=== PATIENT | female | born 1975 | race Caucasian/White ===

== ENCOUNTER 2018-04-22 03:33 | Observation (INO) | payer SELFPAY ==
[2018-04-22] MEDS ORDERED: PROMETHAZINE HCL INJ 25 MG/1 ML VIAL IM ONE (03:48)
[2018-04-22] MEDS ORDERED: NORMAL SALINE 1000 ML 1,000 ML IV ONE (03:48)
--- NOTE | 2018-04-22 03:52 | ER Document Report ---
ED General - General Stated Complaint: ABOMINAL PAIN Time Seen by Provider: 04/22/18 03:45 Notes: Patient is a 42-year-old female presents with complaints of nausea vomiting and diarrhea. She also has some mild abdominal soreness over the upper abdomen she said occurred after the vomiting started. She does not have significant pain in the abdomen per her. No fevers. She was given Zofran and able to close those in the home. She does have diabetes and recently just finished a course of steroids for bronchitis and therefore her blood sugar is running high. In the ambulance her Accu-Chek was 402. Symptoms just started 11 PM. She says only previous abdominal surgeries hysterectomy. No dysuria. No urinary frequency. No implants at this time. No chest pain. TRAVEL OUTSIDE OF THE [place] IN LAST 30 DAYS: No - Related Data Allergies/Adverse Reactions: No Known Allergies Allergy (Unverified 04/19/15 10:52) Past Medical History - Social History Smoking Status: Unknown if Ever Smoked Frequency of alcohol use: None Drug Abuse: None Family History: Reviewed & Not Pertinent - Past Medical History Cardiac Medical History: Reports: Hx Hypercholesterolemia, Hx Hypertension - on meds Denies: Hx Coronary Artery Disease, Hx Heart Attack Pulmonary Medical History: Denies: Hx Asthma, Hx Bronchitis, Hx COPD, Hx Pneumonia Neurological Medical History: Denies: Hx Cerebrovascular Accident, Hx Seizures Endocrine Medical History: Reports: Hx Diabetes Mellitus Type 1, Hx Diabetes Mellitus Type 2 Musculoskeltal Medical History: Denies Hx Arthritis Past Surgical History: Reports: Hx Hysterectomy - Immunizations Hx Diphtheria, Pertussis, Tetanus Vaccination: Yes Review of Systems - Review of Systems Notes: My Normal Review Basic REVIEW OF SYSTEMS: CONSTITUTIONAL : Denies fever, chills, or sweats. Denies recent illness. EENT: Denies eye, ear, throat, or mouth pain or symptoms. Denies nasal or sinus congestion. CARDIOVASCULAR: Denies chest pain. RESPIRATORY: Denies cough, cold, or chest congestion. Denies shortness of breath, difficulty breathing, or wheezing. GASTROINTESTINAL: Upper abdominal pain. Some vomiting diarrhea. GENITOURINARY: Denies difficulty urinating, painful urination, burning, frequency, or blood in urine. FEMALE GENITOURINARY: Denies vaginal bleeding, abnormal or irregular periods. LMP: MUSCULOSKELETAL: Denies neck or back pain or joint pain or swelling. SKIN: Denies rash or skin lesions. NEUROLOGICAL: Denies altered mental status or loss of consciousness. Denies headache. Denies weakness or paralysis or loss of use of either side. Denies problems with gait or speech. Denies sensory or motor loss. ALL OTHER SYSTEMS REVIEWED AND NEGATIVE. Physical Exam - Vital signs Vitals: Temp Pulse Resp BP Pulse Ox 98.2 F 118 H 16 98/56 L 100 04/22/18 03:43 04/22/18 03:43 04/22/18 03:43 04/22/18 03:43 04/22/18 03:43 - Notes Notes: General Appearance: Well nourished, alert, cooperative, no acute distress, mild obvious discomfort. Vitals: reviewed, See vital signs table. Head: no swelling or tenderness to the head Eyes: PERRL, EOMI, Conjuctiva clear Mouth: No decreasd moisture Throat: No tonsillar inflammation, No airway obstruction, No lymphadenopathy Neck: Supple, no neck tenderness Lungs: No wheezing, No rales, No rhonci, No accessory muscle use, good air exchange bilaterally. Heart: Normal rate, Regular rythm, No murmur, no rub Abdomen: Normal BS, soft, No rigidity, mild upper abdominal tenderness to palpation. No lower abdominal tenderness to palpation, No guarding, no rebound , no abdominal masses, no organomegaly Extremities: strength 5/5 in all extremities, good pulses in all extremities, no swelling or tenderness in the extremities, no edema. Skin: warm, dry, appropriate color, no rash Neuro: speech clear, oriented x 3, normal affect, responds appropriately to questions.. Course - Re-evaluation Re-evalutation: 04/22/18 06:58 Patient has hyperglycemia and intractable vomiting. Despite multiple different nausea medications cannot get her nausea under control. She continues to vomit. She also has recurrent diarrhea. I have ordered a C. difficile stool culture being that the patient was receiving antibiotic. We have not been able to get an adequate stool sample as of yet. Due to intractable vomiting felt appropriate to admit her to the hospital. I did speak with the hospitalist, Dr. Rojas, who agrees to evaluate the patient for admission. Dictation of this chart was performed using voice recognition software; therefore, there may be some unintended grammatical errors. - Vital Signs Vital signs: Temp Pulse Resp BP Pulse Ox 98.2 F 118 H 16 98/56 L 100 04/22/18 03:43 04/22/18 03:43 04/22/18 03:43 04/22/18 03:43 04/22/18 03:43 - Laboratory Result Diagrams: 04/22/18 03:50 04/22/18 03:50 Laboratory results interpreted by me: 04/22/18 04/22/18 04/22/18 03:50 03:50 03:50 WBC 12.7 H Seg Neuts % (Manual) 82 H Band Neutrophils % 6 H Lymphocytes % (Manual) 5 L Abs Neuts (Manual) 11.2 H BUN 24 H Glucose 429 H* Hemoglobin A1c % 11.9 H Magnesium 1.4 L Direct Bilirubin 0.5 H Urine Glucose (UA) Urine Ketones 04/22/18 04:15 WBC Seg Neuts % (Manual) Band Neutrophils % Lymphocytes % (Manual) Abs Neuts (Manual) BUN Glucose Hemoglobin A1c % Magnesium Direct Bilirubin Urine Glucose (UA) >=500 H Urine Ketones TRACE H - EKG Interpretation by Me Additional EKG results interpreted by me: 04/22/18 03:59 EKG is reviewed and interpreted by me. EKG shows sinus tachycardia with rate of [address] segment elevation or depression. AL interval, QRS duration, QTc intervals are within normal range. Old EKG for comparison is from April 19, 2015. Discharge - Discharge
[2018-04-22 04:01] LABS: HEMATOCRIT 46.2 % (36.0-47.0); HEMOGLOBIN 15.5 g/dL (12.0-15.5); MEAN CORPUSCULAR HGB CONC 33.6 g/dL (32.0-36.0); MEAN CORPUSCULAR VOLUME 92 fl (80-97); PLATELET COUNT 350 10^3/uL (150-450); RED BLOOD COUNT 5.01 10^6/uL (3.72-5.28); WHITE BLOOD COUNT 12.7 10^3/uL (4.0-10.5)
[2018-04-22 04:13] LABS: ALANINE AMINOTRANSFERASE 31 U/L (9-52); ALBUMIN 4.3 g/dL (3.5-5.0); ALKALINE PHOSPHATASE 87 U/L (38-126); ANION GAP 16 (5-19); ASPARTATE AMINO TRANSFERASE 15 U/L (14-36); BILIRUBIN,DIRECT 0.5 mg/dL (0.0-0.4); BILIRUBIN,TOTAL 0.7 mg/dL (0.2-1.3); BLOOD UREA NITROGEN 24 mg/dL (7-20); CALCIUM 9.7 mg/dL (8.4-10.2); CARBON DIOXIDE 26 mmol/L (22-30); CHLORIDE 100 mmol/L (98-107); LIPASE 148.3 U/L (23-300); POTASSIUM 4.3 mmol/L (3.6-5.0); SODIUM 142.2 mmol/L (137-145); TOTAL PROTEIN 7.3 g/dL (6.3-8.2)
[2018-04-22 04:22] LABS: ABSOLUTE LYMPHOCYTES# (MANUAL) 0.6 10^3/uL (0.5-4.7); ABSOLUTE MONOCYTES # (MANUAL) 0.6 10^3/uL (0.1-1.4); ABSOLUTE NEUTROPHILS# (MANUAL) 11.2 10^3/uL (1.7-8.2); BAND NEUTROPHILS % (MANUAL) 6 % (3-5); BASOPHILS % (MANUAL) 0 % (0-2); EOSINOPHILS % (MANUAL) 2 % (0-6); LYMPHOCYTES % (MANUAL) 5 % (13-45); MONOCYTES % (MANUAL) 5 % (3-13); SEGMENTED NEUTROPHILS % (MAN) 82 % (42-78); TOTAL CELLS COUNTED 100
[2018-04-22 04:23] LABS: GLUCOSE 429 mg/dL (75-110)
[2018-04-22 04:24] LABS: OVALOCYTES SLIGHT; PLATELET COMMENT ADEQUATE; PLATELET LARGE PRESENT; TOXIC GRANULATION SLIGHT; TOXIC VACUOLATION PRESENT
[2018-04-22 04:49] LABS: APPEARANCE,URINE CLEAR; BILIRUBIN,URINE NEGATIVE (NEGATIVE); COLOR,URINE YELLOW; GLUCOSE, URINE >=500 mg/dL (NEGATIVE); KETONES,URINE TRACE mg/dL (NEGATIVE); LEUKOCYTE ESTERASE,URINE NEGATIVE (NEGATIVE); NITRITE,URINE NEGATIVE (NEGATIVE); PROTEIN,URINE NEGATIVE (NEGATIVE); URINE SPECIFIC GRAVITY 1.037; UROBILINOGEN,URINE NEGATIVE mg/dL (<2.0)
[2018-04-22] MEDS: MAGNESIUM SULFATE/D5W 1 GM/100 ML RTUPB IV SCH ×2 (04:50→05:15)
[2018-04-22] MEDS ORDERED: METOCLOPRAMIDE HCL INJ/PF 10 MG/2 ML SDV IV ONE (05:11)
[2018-04-22] MEDS ORDERED: PROMETHAZINE HCL INJ 25 MG/1 ML VIAL IV PRN (05:28)
[2018-04-22] MEDS ORDERED: ACETAMINOPHEN 325 MG TABLET PO PRN (05:28)
[2018-04-22] MEDS ORDERED: DEXTROSE 40% GEL 15 GM TUBE PO PRN ×2 (05:35)
[2018-04-22] MEDS ORDERED: GLUCAGON,HUMAN RECOMB 1 MG INJ IM PRN (05:35)
[2018-04-22] MEDS ORDERED: DEXTROSE 50%-WATER 25 GM/50 ML DISP.SYRIN IV PRN ×2 (05:35)
--- NOTE | 2018-04-22 05:47 | PDOC H&P ---
History of Present Illness Admission Date/PCP: MARBELLA JACOBS MD History of Present Illness: JOSE ANTONIO JEFF is a 42 year old female patient with past medical history of hypertension, hyperlipidemia, diabetes mellitus and anxiety disorder presents with chief complaint of nausea, vomiting and diarrhea. Patient reports this that she has been in her usual baseline state of health up until 11 PM yesterday when she started to have sudden onset vomiting of ingested material, watery diarrhea and abdominal pain. She claims both the diarrhea and the vomiting are too frequent to count. En route to hospital she was given Zofran to no avail. Here at ER shows given Phenergan and Reglan but continued to have vomiting. Her blood work shows hyperglycemia of 400. Of note patient completed a course of steroid and doxycycline for bronchitis week ago. Patient denies fever, chills, chest pain, cough, dyspnea, palpitation, diaphoresis or dysuria. No headache dizziness or blurry vision. Past Medical History Cardiac Medical History: Reports: Hyperlipidema, Hypertension - on meds Denies: Coronary Artery Disease, Myocardial Infarction Pulmonary Medical History: Denies: Asthma, Bronchitis, Chronic Obstructive Pulmonary Disease (COPD), Pneumonia Neurological Medical History: Denies: Seizures Endocrine Medical History: Reports: Diabetes Mellitus Type 1, Diabetes Mellitus Type 2 Musculoskeltal Medical History: Denies: Arthritis Hematology: Denies: Anemia Past Surgical History Past Surgical History: Reports: Hysterectomy Social History Smoking Status: Never Smoker Frequency of Alcohol Use: None Hx Recreational Drug Use: No Drugs: None - Advance Directive Resuscitation Status: Full Code Family History Family History: Reviewed & Not Pertinent, DM, Hypertension Parental Family History Reviewed: Yes Children Family History Reviewed: Yes Sibling(s) Family History Reviewed.: Yes Medication/Allergy Home Medications: Escitalopram Oxalate [Lexapro] 10 mg PO DAILY 04/19/15 Lisinopril 20 mg PO BID 04/19/15 Metformin HCl [Glucophage] 500 mg PO BID 04/19/15 Omeprazole [Prilosec] 40 mg PO DAILY 04/19/15 Pravastatin Sodium [Pravachol] 20 mg PO DAILY 04/19/15 Hydrocodone/Acetaminophen [Vicodin 5-300 mg Tablet] 1 tab PO Q6HP PRN 04/21/15 Prednisone [Deltasone 20 mg Tablet] 3 tab PO DAILY 7 Days tablet 01/04/16 Moxifloxacin HCl [Vigamox 0.5% Oph Soln 3 Ml] 1 drop .ROUTE TID #1 bottle Oxycodone HCl/Acetaminophen [Percocet 5-325 mg Tablet] 1 - 2 tab PO ASDIR PRN # 25 tablet 08/24/16 Allergies/Adverse Reactions: No Known Allergies Allergy (Unverified 04/19/15 10:52) Review of Systems Constitutional: PRESENT: as per HPI Eyes: PRESENT: as per HPI Breasts: PRESENT: as per HPI Cardiovascular: PRESENT: as per HPI Respiratory: PRESENT: as per HPI Gastrointestinal: PRESENT: as per HPI Neurological: PRESENT: as per HPI Psychiatric: PRESENT: as per HPI Physical Exam Vital Signs: Temp Pulse Resp BP Pulse Ox 98.2 F 118 H 16 98/56 L 100 04/22/18 03:43 04/22/18 03:43 04/22/18 03:43 04/22/18 03:43 04/22/18 03:43 Intake & Output 04/20/18 04/21/18 04/22/18 06:59 06:59 06:59 Weight 102.058 kg General appearance: PRESENT: mild distress Head exam: PRESENT: atraumatic, normocephalic Eye exam: PRESENT: conjunctiva pink, EOMI, PERRLA. ABSENT: scleral icterus Neck exam: ABSENT: carotid bruit, JVD, lymphadenopathy, thyromegaly Respiratory exam: PRESENT: clear to auscultation [place]. ABSENT: rales, rhonchi, wheezes Cardiovascular exam: PRESENT: RRR. ABSENT: diastolic murmur, rubs, systolic murmur Pulses: PRESENT: normal dorsalis pedis pul GI/Abdominal exam: PRESENT: normal bowel sounds, soft. ABSENT: distended, guarding, mass, organolmegaly, rebound, tenderness Extremities exam: PRESENT: full ROM. ABSENT: calf tenderness, clubbing, pedal edema Neurological exam: PRESENT: alert, awake, oriented to time, oriented to situation Psychiatric exam: PRESENT: normal mood Results Laboratory Results: 04/22/18 03:50 04/22/18 03:50 04/22/18 04/22/18 04/22/18 03:50 03:50 04:15 WBC 12.7 H RBC 5.01 Hgb 15.5 Hct 46.2 MCV 92 MCH 31.0 MCHC 33.6 RDW 13.0 Plt Count 350 Seg Neutrophils % Not Reportable Lymphocytes % Not Reportable Monocytes % Not Reportable Eosinophils % Not Reportable Basophils % Not Reportable Absolute Neutrophils Not Reportable Absolute Lymphocytes Not Reportable Absolute Monocytes Not Reportable Absolute Eosinophils Not Reportable Absolute Basophils Not Reportable Sodium 142.2 Potassium 4.3 Chloride 100 Carbon Dioxide 26 Anion Gap 16 BUN 24 H Creatinine 0.76 Est GFR ( Amer) > 60 Est GFR (Non-Af Amer) > 60 Glucose 429 H* Calcium 9.7 Magnesium 1.4 L Total Bilirubin 0.7 AST 15 ALT 31 Alkaline Phosphatase 87 Total Protein 7.3 Albumin 4.3 Lipase 148.3 Urine Color YELLOW Urine Appearance CLEAR Urine pH 5.0 Ur Specific [place] 1.037 Urine Protein NEGATIVE Urine Glucose (UA) >=500 H Urine Ketones TRACE H Urine Blood NEGATIVE Urine Nitrite NEGATIVE Ur Leukocyte Esterase NEGATIVE Urine WBC (Auto) 2 Urine RBC (Auto) 4 Assessment & Plan - Diagnosis (1) Intractable nausea and vomiting Qualifiers: Vomiting type: unspecified Qualified Code(s): R11.2 - Nausea with vomiting , unspecified Is this a current diagnosis for this admission?: Yes Plan: Cautious hydration and antiemetic (2) Diarrhea Qualifiers: Diarrhea type: unspecified type Qualified Code(s): R19.7 - Diarrhea, unspecified Is this a current diagnosis for this admission?: Yes Plan: Cautious hydration with Ringer lactate, stool for C. difficile colitis (3) Hypertension Qualifiers: Hypertension type: essential hypertension Qualified Code(s): I10 - Essential (primary) hypertension Is this a current diagnosis for this admission?: Yes Plan: Continue home medications (4) Hyperlipidemia Qualifiers: Hyperlipidemia type: unspecified Qualified Code(s): E78.5 - Hyperlipidemia , unspecified Is this a current diagnosis for this admission?: Yes Plan: Continue home medications (5) Type 2 diabetes mellitus Is this a current diagnosis for this admission?: Yes Plan: Hold metformin and start her on sliding scale.
--- NOTE | 2018-04-22 07:16 | EKG REPORT ---
SEVERITY:- ABNORMAL ECG - SINUS TACHYCARDIA NONSPECIFIC T ABNORMALITIES, DIFFUSE LEADS : Confirmed by: Esequiel Gaston MD 22-Apr-2018 07:15:17
[2018-04-22] MEDS: ENOXAPARIN SODIUM INJ 40 MG/0.4 ML DISP.SYRIN SUBCUT SCH (10:21)
[2018-04-22] MEDS: RINGERS SOLUTION,LACTATED 1,000 ML IV PRN ×2 (11:00→14:30)
[2018-04-22] MEDS: INSULIN LISPRO 100 UNIT/ML 3 ML VIAL SUBCUT PRN ×3 (11:27→22:04)
[2018-04-22] MEDS: METOCLOPRAMIDE HCL INJ/PF 10 MG/2 ML SDV IV SCH ×2 (12:05→17:16)
[2018-04-22] MEDS ORDERED: (PENDING PHARMACY ID) (Metformin Hcl [Metformin Hcl Er] 1,000 MG) PO SCH (13:15)
[2018-04-22] MEDS: METFORMIN HCL 500 MG TABLET PO SCH (16:43)
[2018-04-22] MEDS ORDERED: ESCITALOPRAM OXALATE 10 MG TABLET PO SCH (18:00)
[2018-04-22] MEDS ORDERED: ATORVASTATIN CALCIUM 10 MG TABLET PO SCH (22:00)
[2018-04-23] MEDS: RINGERS SOLUTION,LACTATED 1,000 ML IV PRN (00:39)
[2018-04-23] MEDS: METOCLOPRAMIDE HCL INJ/PF 10 MG/2 ML SDV IV SCH ×3 (00:39→12:10)
[2018-04-23 06:31] LABS: HEMATOCRIT 40.4 % (36.0-47.0); HEMOGLOBIN 13.8 g/dL (12.0-15.5); MEAN CORPUSCULAR HEMOGLOBIN 31.2 pg (27.0-33.4); MEAN CORPUSCULAR HGB CONC 34.2 g/dL (32.0-36.0); MEAN CORPUSCULAR VOLUME 91 fl (80-97); PLATELET COUNT 221 10^3/uL (150-450); RED BLOOD COUNT 4.43 10^6/uL (3.72-5.28); RED CELL DISTRIBUTION WIDTH 13.1 % (11.5-14.0); WHITE BLOOD COUNT 5.5 10^3/uL (4.0-10.5)
[2018-04-23 06:47] LABS: ANION GAP 11 (5-19); BLOOD UREA NITROGEN 12 mg/dL (7-20); CALCIUM 8.6 mg/dL (8.4-10.2); CARBON DIOXIDE 23 mmol/L (22-30); CHLORIDE 104 mmol/L (98-107); GLUCOSE 220 mg/dL (75-110); POTASSIUM 3.9 mmol/L (3.6-5.0); SODIUM 138.1 mmol/L (137-145)
[2018-04-23] MEDS: METFORMIN HCL 500 MG TABLET PO SCH (08:42)
[2018-04-23] MEDS: INSULIN LISPRO 100 UNIT/ML 3 ML VIAL SUBCUT PRN ×2 (08:45→12:10)
[2018-04-23] MEDS ORDERED: LISINOPRIL 10 MG TABLET PO SCH (10:00)
[2018-04-23] MEDS ORDERED: (PENDING PHARMACY ID) (Lisinopril [Lisinopril] 20 MG) PO SCH (10:00)
[2018-04-23] MEDS: ENOXAPARIN SODIUM INJ 40 MG/0.4 ML DISP.SYRIN SUBCUT SCH (10:39)
--- NOTE | 2018-04-23 12:45 | PDOC DISCHARGE SUMMARY ---
General - Admit/Disc Date/PCP Admission Date/Primary Care Provider: 04/22/18 05:51 MARBELLA JACOBS MD Discharge Date: 04/23/18 - Discharge Diagnosis (1) Gastroenteritis Is this a current diagnosis for this admission?: Yes (2) Hypertension Is this a current diagnosis for this admission?: Yes (3) Intractable nausea and vomiting Is this a current diagnosis for this admission?: Yes (4) Type 2 diabetes mellitus Is this a current diagnosis for this admission?: Yes - Additional Information Resuscitation Status: Full Code Discharge Diet: Diabetic Discharge Activity: Activity As Tolerated Home Medications: Escitalopram Oxalate [Lexapro] 20 mg PO DAILY 04/19/15 Lisinopril 40 mg PO DAILY 04/19/15 Omeprazole [Prilosec] 40 mg PO DAILY 04/19/15 Pravastatin Sodium [Pravachol] 20 mg PO DAILY 04/19/15 Codeine Phosphate/Guaifenesin [Guaiatussin AC Liquid] 5 ml PO Q4HP PRN 04/22/18 Metformin HCl [Metformin HCl ER] 1,000 mg PO DAILY 04/22/18 History of Present Illness History of Present Illness: patient with past medical history of hypertension, hyperlipidemia, diabetes mellitus and anxiety disorder presents with chief complaint of nausea, vomiting and diarrhea. Patient reports this that she has been in her usual baseline state of health up until 11 PM yesterday when she started to have sudden onset vomiting of ingested material, watery diarrhea and abdominal pain. She claims both the diarrhea and the vomiting are too frequent to count. En route to hospital she was given Zofran to no avail. Here at ER shows given Phenergan and Reglan but continued to have vomiting. Her blood work shows hyperglycemia of 400. Of note patient completed a course of steroid and doxycycline for bronchitis week ago. Patient denies fever, chills, chest pain, cough, dyspnea, palpitation, diaphoresis or dysuria. No headache dizziness or blurry vision. Hospital Course Hospital Course: Patient is was treated with intravenous fluids and antiemetics. Her symptoms quickly resolved. Her blood pressure was poorly controlled but became better controlled with the initiation of insulin. Patient has remained hemodynamically stable and without resolution of her symptoms she is been discharged home in stable condition Physical Exam Vital Signs: Temp Pulse Resp BP Pulse Ox 98.3 F 84 16 108/70 92 04/23/18 10:57 04/23/18 10:57 04/23/18 10:57 04/23/18 10:57 04/23/18 10:57 Intake & Output 04/22/18 04/23/18 04/24/18 06:59 06:59 06:59 Intake Total 2470 Balance 2470 Weight 102.05 kg General appearance: PRESENT: no acute distress, well-developed, well-nourished Head exam: PRESENT: atraumatic, normocephalic Eye exam: PRESENT: conjunctiva pink, EOMI, PERRLA. ABSENT: scleral icterus Ear exam: PRESENT: normal external ear exam Mouth exam: PRESENT: moist, tongue midline Neck exam: ABSENT: carotid bruit, JVD, lymphadenopathy, thyromegaly Respiratory exam: PRESENT: clear to auscultation [place]. ABSENT: rales, rhonchi, wheezes Cardiovascular exam: PRESENT: RRR. ABSENT: diastolic murmur, rubs, systolic murmur Pulses: PRESENT: normal dorsalis pedis pul Vascular exam: PRESENT: normal capillary refill GI/Abdominal exam: PRESENT: normal bowel sounds, soft. ABSENT: distended, guarding, mass, organolmegaly, rebound, tenderness Rectal exam: PRESENT: deferred Extremities exam: PRESENT: full ROM. ABSENT: calf tenderness, clubbing, pedal edema Neurological exam: PRESENT: alert, awake, oriented to person, oriented to place , oriented to time, oriented to situation, CN II-XII grossly intact. ABSENT: motor sensory deficit Psychiatric exam: PRESENT: appropriate affect, normal mood. ABSENT: homicidal ideation, suicidal ideation Skin exam: PRESENT: dry, intact, warm. ABSENT: cyanosis, rash Results Laboratory Results: 04/23/18 05:50 04/23/18 05:50 04/23/18 04/23/18 05:50 05:50 WBC 5.5 RBC 4.43 Hgb 13.8 Hct 40.4 MCV 91 MCH 31.2 MCHC 34.2 RDW 13.1 Plt Count 221 Sodium 138.1 Potassium 3.9 Chloride 104 Carbon Dioxide 23 Anion Gap 11 BUN 12 Creatinine 0.53 Est GFR ( Amer) > 60 Est GFR (Non-Af Amer) > 60 Glucose 220 H Calcium 8.6 Magnesium 2.1 Qualifiers - * PATIENT BEING DISCHARGED WITH ANY OF THE FOLLOWING DIAGNOSIS: No Plan Time Spent: Less than 30 Minutes
[2018-04-23 13:51] VITALS: BP 110/60
== END 2018-04-23 14:05 | disposition home or self-care (01) ==
LOC: ER 03:33 → EH 05:51 → 2N 12:24
PROVIDERS: ADMIT Internal Medicine; ATTEND Internal Medicine
DX: K52.9 Noninfective gastroenteritis and colitis, unspecified (principal); I10 Essential (primary) hypertension; E11.65 Type 2 diabetes mellitus with hyperglycemia; E78.5 Hyperlipidemia, unspecified; Z79.899 Other long term (current) drug therapy; Z79.84 Long term (current) use of oral hypoglycemic drugs; Z87.09 Personal history of other diseases of the respiratory system; Z90.710 Acquired absence of both cervix and uterus
CPT/HCPCS: 93005; 96376; 99285; 96372; 96361; 96375; 96365; 36415 ×2; 82962 ×2; 83690; 83735 ×2; 85025; 85027; 80048; 80053; 81001; 83036; 87493; 93010; G0378 ×3; J1815 ×2; J2765 ×2; J1650 ×2; J3475; J2550; J7030; J7120 ×2

== ENCOUNTER → 2018-05-04 | Outpatient (CLI) | payer OTHER ==
[2018-05-04 12:45] LABS: HEMATOCRIT 37.7 % (36.0-47.0); MEAN CORPUSCULAR HEMOGLOBIN 31.1 pg (27.0-33.4); MEAN CORPUSCULAR HGB CONC 34.4 g/dL (32.0-36.0); MEAN CORPUSCULAR VOLUME 90 fl (80-97); PLATELET COUNT 311 10^3/uL (150-450); RED BLOOD COUNT 4.17 10^6/uL (3.72-5.28); RED CELL DISTRIBUTION WIDTH 13.5 % (11.5-14.0); WHITE BLOOD COUNT 9.4 10^3/uL (4.0-10.5)
[2018-05-04 13:05] LABS: ALANINE AMINOTRANSFERASE 54 U/L (9-52); ALBUMIN 3.8 g/dL (3.5-5.0); ALKALINE PHOSPHATASE 67 U/L (38-126); ANION GAP 7 (5-19); ASPARTATE AMINO TRANSFERASE 25 U/L (14-36); BILIRUBIN,DIRECT 0.3 mg/dL (0.0-0.4); BILIRUBIN,TOTAL 0.4 mg/dL (0.2-1.3); BLOOD UREA NITROGEN 9 mg/dL (7-20); CALCIUM 9.4 mg/dL (8.4-10.2); CARBON DIOXIDE 30 mmol/L (22-30); CHLORIDE 106 mmol/L (98-107); CHOLESTEROL 150.26 mg/dL (0-200); GLUCOSE 129 mg/dL (75-110); POTASSIUM 4.4 mmol/L (3.6-5.0); SODIUM 143.1 mmol/L (137-145); TOTAL PROTEIN 6.6 g/dL (6.3-8.2); TRIGLYCERIDES 198 mg/dL (<150)
[2018-05-04 13:15] LABS: DIRECT LDL 92 mg/dL (<100)
[2018-05-04 13:17] LABS: VLDL CHOLESTEROL 39.6 mg/dL (10-31)
== END ==
LOC: OD 12:05
PROVIDERS: ATTEND Nurse Practitioner Primary Care
DX: E66.01 Morbid (severe) obesity due to excess calories (principal); J06.9 Acute upper respiratory infection, unspecified; E11.65 Type 2 diabetes mellitus with hyperglycemia; R19.7 Diarrhea, unspecified; D72.829 Elevated white blood cell count, unspecified; Z79.899 Other long term (current) drug therapy
CPT/HCPCS: 36415; 80053; 80061; 82306; 83036; 84443; 85027

== ENCOUNTER 2018-05-06 08:16 | Emergency (ER) | payer OTHER ==
[2018-05-06 09:34] LABS: ABSOLUTE EOSINOPHILS # (AUTO) 0.3 10^3/uL (0.0-0.6); ABSOLUTE LYMPHOCYTES (AUTO) 1.4 10^3/uL (0.5-4.7); ABSOLUTE MONOCYTES (AUTO) 0.5 10^3/uL (0.1-1.4); ABSOLUTE NEUT (AUTO) 6.2 10^3/uL (1.7-8.2); BASOPHILS % (AUTO) 0.3 % (0-2); EOSINOPHILS % (AUTO) 3.2 % (0-6); HEMATOCRIT 37.5 % (36.0-47.0); HEMOGLOBIN 12.7 g/dL (12.0-15.5); LYMPHOCYTES % (AUTO) 16.4 % (13-45); MEAN CORPUSCULAR HEMOGLOBIN 30.8 pg (27.0-33.4); MEAN CORPUSCULAR VOLUME 91 fl (80-97); MONOCYTES % (AUTO) 6.2 % (3-13); PLATELET COUNT 286 10^3/uL (150-450); RED BLOOD COUNT 4.13 10^6/uL (3.72-5.28); RED CELL DISTRIBUTION WIDTH 13.6 % (11.5-14.0); SEGMENTED NEUTROPHILS % (AUTO) 73.9 % (42-78); TOTAL CELLS COUNTED % (AUTO) 100 %; WHITE BLOOD COUNT 8.4 10^3/uL (4.0-10.5)
[2018-05-06 09:47] LABS: ALANINE AMINOTRANSFERASE 43 U/L (9-52); ALBUMIN 3.5 g/dL (3.5-5.0); ALKALINE PHOSPHATASE 59 U/L (38-126); ANION GAP 14 (5-19); ASPARTATE AMINO TRANSFERASE 29 U/L (14-36); BILIRUBIN,DIRECT 0.3 mg/dL (0.0-0.4); BILIRUBIN,TOTAL 0.3 mg/dL (0.2-1.3); BLOOD UREA NITROGEN 11 mg/dL (7-20); CARBON DIOXIDE 28 mmol/L (22-30); CHLORIDE 105 mmol/L (98-107); GLUCOSE 201 mg/dL (75-110); POTASSIUM 4.4 mmol/L (3.6-5.0); SODIUM 147.2 mmol/L (137-145); TOTAL PROTEIN 6.1 g/dL (6.3-8.2)
[2018-05-06 10:00] LABS: APPEARANCE,URINE CLEAR; BILIRUBIN,URINE NEGATIVE (NEGATIVE); COLOR,URINE YELLOW; GLUCOSE, URINE >=500 mg/dL (NEGATIVE); KETONES,URINE NEGATIVE (NEGATIVE); LEUKOCYTE ESTERASE,URINE NEGATIVE (NEGATIVE); NITRITE,URINE NEGATIVE (NEGATIVE); PROTEIN,URINE NEGATIVE (NEGATIVE); URINE SPECIFIC GRAVITY 1.011; UROBILINOGEN,URINE NEGATIVE mg/dL (<2.0)
[2018-05-06] MEDS ORDERED: NORMAL SALINE 1000 ML 1,000 ML IV ONE (10:01)
--- NOTE | 2018-05-06 10:01 | ER Document Report ---
ED General - General Chief Complaint: Nausea/Vomiting Stated Complaint: VOMITING Time Seen by Provider: 05/06/18 09:59 Mode of Arrival: Ambulatory Information source: Patient TRAVEL OUTSIDE OF THE [place] IN LAST 30 DAYS: No - HPI Notes: 42-year-old male presents to the ED with complaints of right epigastric tenderness nausea vomiting and diarrhea 1 week. Patient was seen in the ED and discharged after observation. Pain is 4 out of 10, sharp and constant. Denies fevers, chills, chest pain,palpitations, shortness of breath, dyspnea, hematuria,blurred vision, double vision, loss of vision, speech changes, LH, dizziness, syncope, headaches, wheezing, ST, URI, neck pain, weakness, bowel or bladder dysfunction, saddle anesthesia, numbness or tingling in bilateral upper or lower extremities equally, muscle paralysis, weakness in bilateral upper or lower extremities equally or rash. Denies IV drug use. - Related Data Allergies/Adverse Reactions: No Known Allergies Allergy (Verified 05/06/18 11:25) Past Medical History - General Information source: Patient - Social History Smoking Status: Unknown if Ever Smoked Family History: Reviewed & Not Pertinent - Past Medical History Cardiac Medical History: Reports: Hx Hypercholesterolemia, Hx Hypertension - on meds Denies: Hx Coronary Artery Disease, Hx Heart Attack Pulmonary Medical History: Denies: Hx Asthma, Hx Bronchitis, Hx COPD, Hx Pneumonia Neurological Medical History: Denies: Hx Cerebrovascular Accident, Hx Seizures Endocrine Medical History: Reports: Hx Diabetes Mellitus Type 1, Hx Diabetes Mellitus Type 2 Renal/ Medical History: Denies: Hx Peritoneal Dialysis Musculoskeltal Medical History: Denies Hx Arthritis Psychiatric Medical History: Reports: Hx Depression Past Surgical History: Reports: Hx Hysterectomy - Immunizations Hx Diphtheria, Pertussis, Tetanus Vaccination: Yes Review of Systems - Review of Systems Constitutional: No symptoms reported EENT: No symptoms reported Cardiovascular: No symptoms reported Respiratory: No symptoms reported Gastrointestinal: See HPI Genitourinary: No symptoms reported Female Genitourinary: No symptoms reported Musculoskeletal: No symptoms reported Skin: No symptoms reported Hematologic/Lymphatic: No symptoms reported Neurological/Psychological: No symptoms reported Physical Exam - Vital signs Vitals: Temp Pulse Resp BP Pulse Ox 98.5 F 83 18 132/88 H 94 05/06/18 08:29 05/06/18 08:29 05/06/18 08:29 05/06/18 08:29 05/06/18 08:29 - Notes Notes: PHYSICAL EXAMINATION: GENERAL: Well-appearing, well-nourished and in no acute distress. HEAD: Atraumatic, normocephalic. EYES: Pupils equal round and reactive to light, extraocular movements intact, sclera anicteric, conjunctiva are normal. ENT: Nares patent, oropharynx clear without exudates. Moist mucous membranes. NECK: Normal range of motion, supple without lymphadenopathy LUNGS: Breath sounds clear to auscultation bilaterally and equal. No wheezes rales or rhonchi. HEART: Regular rate and rhythm without murmurs ABDOMEN: Right upper quadrant tenderness on palpation only. soft, nontender, nondistended abdomen. No guarding, no rebound. No masses appreciated. Musculoskeletal: Normal range of motion, no pitting or edema. No cyanosis. NEUROLOGICAL: Cranial nerves grossly intact. Normal speech, normal gait. Normal sensory, motor exams PSYCH: Normal mood, normal affect. SKIN: Warm, Dry, normal turgor, no rashes or lesions noted. Course - Re-evaluation Re-evalutation: 05/12/18 09:[address] Tracy Hubbard MD, for further management and evaluation of patient's care. - Vital Signs Vital signs: Temp Pulse Resp BP Pulse Ox 98.6 F 83 15 121/78 94 05/06/18 14:01 05/06/18 08:29 05/06/18 14:01 05/06/18 14:01 05/06/18 14:01 - Laboratory Result Diagrams: 05/06/18 09:10 05/06/18 09:10 Laboratory results interpreted by me: 05/06/18 05/06/18 09:10 09:35 Sodium 147.2 H Glucose 201 H Total Protein 6.1 L Urine Glucose (UA) >=500 H Discharge - Discharge Clinical Impression: Nausea vomiting and diarrhea, Right sided abdominal pain, Fatty liver Condition: Stable Disposition: HOME, SELF-CARE Additional Instructions: Today your blood work did not show any signs of infection, inflammation of the liver or dehydration. You did have elevated blood sugar, this is consistent with your diabetes. You may now take Imodium as directed on the box [id number]. You should continue taking the Phenergan at home. Your ultrasound did show that you have a fatty liver. There was no evidence of gallstones or infection to your gallbladder. Please follow-up with your primary care provider Beatriz Calero as an outpatient. Please return to the emergency department for any new or concerning symptoms. Referrals: BEATRIZ CALERO, ENCY[employer]IA RESEARCH WORKER [Primary Care Provider] - Follow up as needed
[2018-05-06] MEDS ORDERED: PROCHLORPERAZINE EDISYLATE INJ 10 MG/2 ML VIAL IV ONE (10:02)
--- NOTE | 2018-05-06 12:32 | RADIOLOGY REPORT (SQ) ---
EXAM DESCRIPTION: U/S ABDOMEN LTD W/DOPPLER COMPLETED DATE/TIME: 05/06/2018 12:02 pm REASON FOR STUDY: RUQ abd pain with n/v COMPARISON: None. TECHNIQUE: Dynamic and static grayscale images acquired of the abdomen and recorded on PACS. Additio nal selected color Doppler and spectral images recorded. LIMITATIONS: None. FINDINGS: PANCREAS: No masses. Visualized pancreatic duct normal caliber. LIVER: Enlarged fatty liver measuring greater than 23 cm in size. No masses. LIVER VASCULATURE: Normal directional flow of the main portal vein and hepatic veins. GALLBLADDER: No stones. Normal wall thickness. No pericholecystic fluid. ULTRASOUND-DETECTED TESFAYE'S SIGN: Negative. INTRAHEPATIC DUCTS AND COMMON DUCT: CBD and intrahepatic ducts normal caliber. No filling defects. INFERIOR VENA CAVA: Normal flow. AORTA: No aneurysm. RIGHT KIDNEY: Normal size. Normal echogenicity. No solid or suspicious masses. No hydronephrosis. No calcifications. PERITONEAL AND RIGHT PLEURAL SPACE: No ascites or effusions. OTHER: No other significant findings. IMPRESSION: Enlarged fatty liver. TECHNICAL DOCUMENTATION: JOB ID: [id number] [employer]- All Rights Reserved Reading location - IP/workstation name: [email or web address]
--- NOTE | 2018-05-06 13:56 | ER Document Report ---
ED General - General Chief Complaint: Nausea/Vomiting Stated Complaint: VOMITING Time Seen by Provider: 05/06/18 09:59 Notes: 42-year-old female presents emergency department complaining of nausea vomiting and diarrhea for the past week that has been slowly improving, she was actually observed in the hospital overnight within the past week and discharged home when her symptoms started to improve. Patient presents today because she is still having some nausea, vomiting and diarrhea but she is newly developed right -sided abdominal pain that is sharp in nature and does not radiate. Denies any fevers. Cannot identify anything that worsens or improves the pain, no change with food. TRAVEL OUTSIDE OF THE [place] IN LAST 30 DAYS: No - Related Data Allergies/Adverse Reactions: No Known Allergies Allergy (Verified 05/06/18 11:25) Past Medical History - General Information source: Patient - Social History Smoking Status: Current Every Day Smoker Chew tobacco use (# tins/day): No Frequency of alcohol use: None Drug Abuse: None Family History: Reviewed & Not Pertinent Patient has suicidal ideation: No Patient has homicidal ideation: No - Past Medical History Cardiac Medical History: Reports: Hx Hypercholesterolemia, Hx Hypertension - on meds Denies: Hx Coronary Artery Disease, Hx Heart Attack Pulmonary Medical History: Denies: Hx Asthma, Hx Bronchitis, Hx COPD, Hx Pneumonia Neurological Medical History: Denies: Hx Cerebrovascular Accident, Hx Seizures Endocrine Medical History: Reports: Hx Diabetes Mellitus Type 1, Hx Diabetes Mellitus Type 2 Renal/ Medical History: Denies: Hx Peritoneal Dialysis GI Medical History: Reports: Hx Gastroesophageal Reflux Disease Musculoskeltal Medical History: Denies Hx Arthritis Psychiatric Medical History: Reports: Hx Depression Past Surgical History: Reports: Hx Hysterectomy - Immunizations Hx Diphtheria, Pertussis, Tetanus Vaccination: Yes Review of Systems - Review of Systems Constitutional: No symptoms reported EENT: No symptoms reported Gastrointestinal: See HPI -: Yes All other systems reviewed and negative Physical Exam - Vital signs Vitals: Temp Pulse Resp BP Pulse Ox 98.5 F 83 18 132/88 H 94 05/06/18 08:29 05/06/18 08:29 05/06/18 08:29 05/06/18 08:29 05/06/18 08:29 Interpretation: Normal - Notes Notes: GENERAL: Alert, interacts well. No acute distress. Overweight HEAD: Normocephalic, atraumatic EYES: Pupils equal, round and reactive to light, extraocular movements intact. ENT: Oral mucosa moist, tongue midline. NECK: Full range of motion, supple, trachea midline. LUNGS: Clear to auscultation bilaterally, no wheezes, rales or rhonchi, no respiratory distress. HEART: Regular rate and rhythm, no murmurs, gallops, rubs. ABDOMEN: Soft, nontender, nondistended, bowel sounds present in all 4 quadrants. EXTREMITIES: Moves all 4 extremities spontaneously, no edema, radial and dorsalis pedis pulses 2/4 bilaterally. No cyanosis. NEUROLOGICAL: Alert and oriented x3, normal speech. PSYCH: Normal mood, normal affect. SKIN: Warm, Dry, normal turgor, no rashes or lesions noted. Course - Re-evaluation Re-evalutation: 05/06/18 13:52 CBC unremarkable, CMP shows slightly elevated sodium 47.2, glucose elevated at 201, she is a known diabetic, LFTs and lipase normal, urinalysis shows glucose greater than 500 again consistent with her diabetes but no evidence of dehydration. Ultrasound was ordered which shows fatty liver but no acute process with the gallbladder or common bile duct. Patient was given Compazine for her nausea and a 1 L normal saline bolus. Patient did not receive any pain medication here, states that her pain is gone away completely since coming to the emergency department, she has not had any further vomiting or diarrhea either since coming to the emergency department. She feels much better and is quite content to be discharged home, she Jamie has Phenergan at home and will continue to use that, states that when she uses it it does help her vomiting. Also states that she had been previously instructed not to use any antidiarrheal medication. Patient is now encouraged to use Imodium as she has not seen any blood in her stool, her pain has resolved, she has not had any fevers and her symptoms are reported improving on their own. - Vital Signs Vital signs: Temp Pulse Resp BP Pulse Ox 98.1 F 83 16 144/78 H 96 05/06/18 12:12 05/06/18 08:29 05/06/18 13:01 05/06/18 13:01 05/06/18 13:01 - Laboratory Result Diagrams: 05/06/18 09:10 05/06/18 09:10 Laboratory results interpreted by me: 05/06/18 05/06/18 09:10 09:35 Sodium 147.2 H Glucose 201 H Total Protein 6.1 L Urine Glucose (UA) >=500 H Discharge - Discharge Clinical Impression: Nausea vomiting and diarrhea, Right sided abdominal pain, Fatty liver Condition: Stable Disposition: HOME, SELF-CARE Additional Instructions: Today your blood work did not show any signs of infection, inflammation of the liver or dehydration. You did have elevated blood sugar, this is consistent with your diabetes. You may now take Imodium as directed on the box [id number]. You should continue taking the Phenergan at home. Your ultrasound did show that you have a fatty liver. There was no evidence of gallstones or infection to your gallbladder. Please follow-up with your primary care provider Concepcion Calero as an outpatient. Please return to the emergency department for any new or concerning symptoms. Referrals: CONCEPCION CALERO, RN VASCULAR [Primary Care Provider] - Follow up as needed
[2018-05-06 14:03] VITALS: BP 121/78
--- NOTE | 2018-05-07 07:53 | EKG REPORT ---
SEVERITY:- ABNORMAL ECG - SINUS RHYTHM FIRST DEGREE AV BLOCK BORDERLINE T WAVE ABNORMALITIES : Confirmed by: Mohini Agustin MD 07-May-2018 07:52:04
== END 2018-05-06 14:05 | disposition home or self-care (01) ==
LOC: ER 08:16
DX: K76.0 Fatty (change of) liver, not elsewhere classified (principal); R11.2 Nausea with vomiting, unspecified; R19.7 Diarrhea, unspecified; R10.9 Unspecified abdominal pain; Z79.899 Other long term (current) drug therapy; F17.200 Nicotine dependence, unspecified, uncomplicated; I10 Essential (primary) hypertension; E11.9 Type 2 diabetes mellitus without complications
CPT/HCPCS: 93005; 99284; 96361; 96374; 36415; 83690; 85025; 80053; 81001; 76705; 93976; 93010; J0780; J7030